=== PATIENT | female | born 1970 | race Caucasian/White ===

== ENCOUNTER → 2018-06-03 11:07 | Emergency (ER) | payer OTHER ==
[~2018-06-03 11:07] MED LIST: Lisinopril TAB* 10 MG PO ONE; Metoprolol Tartrate IV* 1 MG/ML 5 ML VIAL IV ONE; hydrALAZINE IV* 20 MG/ML VIAL IV SLOW PU ONE
--- NOTE | 2018-06-03 11:44 | ED ---
Neurological HPI - HPI Summary HPI Summary: Patient is a 47 y/o F w/ c/o right sided tingling. She states that she was working out three days ago when her RLE began to tingle. She reports that her right side "has not felt the same since." Right arm and leg are reported to feel heavier as well. In the room, patient also notes that the right sided tingling is at her entire right side currently, from face to toes. GARCIA, speech issues, dropping objects, chest pain is denied. No FMHx of stroke. PMHx of HLD, no Hx of high BP. In room, BP is 164/67. Patient denies taking any medications. Smoking, alc use is denied. No recent stress is noted. On triage, pain is denied. Nothing is reported to alleviate/aggravate Sx. Home medications and allergies are reviewed. - History of Current Complaint Chief Complaint: EDGeneral Stated Complaint: CHEST TINGLING Time Seen by Provider: 06/03/18 11:19 Hx Obtained From: Patient Onset/Duration: Started days ago - onset three days ago, Still Present Timing: Constant Current Severity: None Neurological Deficit Location: Generalized - right sided Pain Intensity: 0 Pain Scale Used: 0-10 Numeric - 0/10 Character: Numbness/Tingling Aggravating: Nothing Alleviating: Nothing Associated Signs and Symptoms: Negative: Headache, Impaired Speech, Chest Pain - Allergy/Home Medications Allergies/Adverse Reactions: Allergies Allergy/AdvReac Type Severity Reaction Status Date / Time bee venom protein (honey bee) Allergy Intermediate Swelling Verified 06/03/18 11 :40 PMH/Surg Hx/FS Hx/Imm Hx Endocrine/Hematology History: Reports: Other Endocrine/Hematological Disorders - HLD Sensory History: Denies: Hx Legally Blind, Hx Deafness Opthamlomology History: Denies: Hx Legally Blind EENT History: Denies: Hx Deafness - Cancer History Hx Chemotherapy: No Hx Radiation Therapy: No Infectious Disease History: No Infectious Disease History: Denies: Traveled Outside the [place] in Last 30 Days - Family History Known Family History: Negative: Blood Disorder - Social History Alcohol Use: None Substance Use Type: Reports: None Smoking Status (MU): Never Smoked Tobacco Review of Systems Negative: Fever, Chills Negative: Erythema Negative: Sore Throat Negative: Chest Pain Negative: Shortness Of Breath, Cough Negative: Abdominal Pain, Vomiting, Nausea Negative: dysuria, hematuria Negative: Myalgia, Edema Negative: Rash Neurological: Other - Right sided tingling, heaviness at right extremities, patient denies dropping objects Negative: Headache, Slurred Speech All Other Systems Reviewed And Are Negative: Yes Physical Exam - Summary Physical Exam Summary: Constitutional: Well-developed, Well-nourished, Alert. (-) Distressed Skin: Warm, Dry HENT: Normocephalic; Atraumatic Eyes: Conjunctiva normal Neck: Musculoskeletal ROM normal neck. (-) JVD, (-) Stridor, (-) Tracheal deviation Cardio: Rhythm regular, rate normal, Heart sounds normal; Intact distal pulses; The pedal pulses are 2+ and symmetric. Radial pulses are 2+ and symmetric. (-) Murmur Pulmonary/Chest wall: Effort normal. (-) Respiratory distress, (-) Wheezes, (-) Rales Abd: Soft. (-) Tenderness, (-) Distension, (-) Guarding, (-) Rebound Musculoskeletal: (-) Edema Lymph: (-) Cervical adenopathy Neuro: Alert, Oriented x3, Strength normal, Cranial nerves II-XII are grossly intact. (-) Dysmetria, (-) Nystagmus, (-) Ataxia by finger to nose testing, (-) Sensory deficit. NIH 0, GCS 15 Psych: Mood and affect Normal Triage Information Reviewed: Yes Vital Signs On Initial Exam: Initial Vitals Temp Pulse Resp BP Pulse Ox 97.5 F 107 18 106/70 99 06/03/18 11:11 06/03/18 11:11 06/03/18 11:11 06/03/18 11:11 06/03/18 11:11 Vital Signs Reviewed: Yes - Leatha Coma Scale Best Eye Response: 4 - Spontaneous Best Motor Response: 6 - Obeys Commands Best Verbal Response: 5 - Oriented Coma Scale Total: 15 Diagnostics - Vital Signs Vital Signs Temp Pulse Resp BP Pulse Ox 06/03/18 11:11 97.5 F 107 18 106/70 99 - Laboratory Result Diagrams: 06/03/18 12:09 06/03/18 12:09 Lab Statement: Any lab studies that have been ordered have been reviewed, and results considered in the medical decision making process. - CT brain CT CT Interpretation: No Acute Changes CT Interpretation Completed By: Radiologist - Negative unenhanced head CT. This report was reviewed by ed physician. - Ultrasound No standard instances Ultrasound Interpretation Completed By: Radiologist Summary of Ultrasound Findings: No evidence of deep venous thrombosis is identified. This report was reviewed by ED physician. - EKG 1150 Cardiac Rate: NL - rate of 70 BPM EKG Interpretation: rate of 70 BPM, sinus arrhythmia, no STEMI - Additional Comments Diagnostic Additional Comments: MRI showed normal brain, this report was reviewed by ed physician. NIH Scale - NIH Scale Level of Consciousness: Alert/Keenly Responsive Ask Patient the Month and His/Her Age: Both Correct Ask Pt to Open/Close Eyes and Frame And Scrap Crusher/Release Non-Paretic Hand: Both Correctly Best Gaze (Only Horizontal Eye Movement): Normal Visual Field Testing: No Visual Loss Facial Paresis-Pt to Smile & Close Eyes or Grimace Symmetry: Normal/Symmetrical Motor Function - Right Arm: No Drift-Holds 10 Seconds Motor Function - Left Arm: No Drift-Holds 10 Seconds Motor Function - Right Leg: No Drift-Holds 10 Seconds Motor Function - Left Leg: No Drift-Holds 10 Seconds Limb Ataxia-Must be out of Proportion to Weakness Present: Absent Sensory (Use Pinprick to Test Arms/Legs/Trunk/Face): Normal Best Language (Describe Picture, Name Items): No Aphasia Dysarthria (Read Several Words): Normal Extinction and Inattention: No Abnormality Total Score: 0 Re-Evaluation - Re-Evaluation First Eval Re-Evaluation Time: 13:40 Comment: Updated patient on labs, tests, and consult, she is agreeable with MRI. Second Eval Re-Evaluation Time: 17:00 Comment: Discussed MRI and plan of treatment. Patient will be discharged to home and follow up with PCP. She is agreeable with this plan. Course/Dx - Course Course Of Treatment: Patient is a 47 y/o F w/ c/o right sided tingling. She states that she was working out three days ago when her RLE began to tingle. She reports that her right side "has not felt the same since." Right arm and leg are reported to feel heavier as well. In the room, patient also notes that the right sided tingling is at her entire right side currently, from face to toes. GARCIA, speech issues, dropping objects, chest pain is denied. No FMHx of stroke. PMHx of HLD, no Hx of high BP. In room, BP is 164/67. Neuro exam was normal, GCS 15, NIH 0. During ED course, patient received Prinivil tab 10 mg PO ONCE, apresoline 5 mg IV SLOW PUSH ONCE. UA was negative. Labs showed free T4 0.88, TSH 2.11, HDL cholesterol 72.8, LDL cholesterol 160, Cholesterol 256, triglycerides 114, both trops negative, glucose 96, WBC 6. Negative unenhanced head CT. US IMPRESSION: no evidence of deep venous thrombosis is identified. EKG showed sinus arrhythmia w/ rate of 70 BPM, no STEMI. Patient's case was discussed with Dr. Velasco at 1314, he recommends MRI. MRI showed normal brain. 1630 - After MRI and evaluation of patient, Dr. Velasco states patient can be discharged to home. Discussed MRI and plan of treatment with patient. Patient will be discharged to home and follow up with PCP. She is agreeable with this plan. Dx of parathesia, uncontrolled HTN. - Diagnoses Provider Diagnoses: Uncontrolled hypertension, Paresthesia - Physician Notifications Discussed Care Of Patient With: Cristobal Velasco Time Discussed With Above Provider: 13:14 Instructed by Provider To: Other - Patient's case was discussed with Dr. Velasco at 1314, he recommends MRI. 1630 - After MRI and evaluation of patient, Dr. Velasco states patient can be discharged to home. Discharge - Sign-Out/Discharge Documenting (check all that apply): Patient Departure - discharge - Discharge Plan Condition: Stable Disposition: HOME Prescriptions: Lisinopril TAB* [Prinivil TAB 10 MG*] 10 mg PO DAILY #14 tab Patient Education Materials: Paresthesia (ED), Hypertension (ED) Referrals: Rashawn Choudhury MD [Primary Care Provider] - 3 Days Additional Instructions: FOLLOW UP WITH PRIMARY CARE PHYSICIAN IN 2-3 DAYS. RETURN TO THE EMERGENCY DEPARTMENT FOR CHANGING OR WORSENING SYMPTOMS - Attestation Statements Document Initiated by Scribe: Yes Documenting Scribe: Walter Rdz Provider For Whom Scribe is Documenting (Include Credential): Jose Gonzalez MD Scribe Attestation: Walter Ford , scribed for Jose Gonzalez MD on 06/03/18 at 1932.
--- NOTE | 2018-06-03 12:12 | RAD ---
Indication: Whole-body RIGHT side numbness and tingling. Comparison: No relevant prior exams available on the [facility] for comparison. Technique: Noncontrast CT vertex of skull through foramen magnum. Report: The sulci, ventricles, and basal cisterns are normal for age. East matter white matter differentiation is preserved without evidence for edema. No intra or extra axial hemorrhage, mass, or fluid collection detected. Unremarkable visualized orbital contents. Unremarkable calvarium and skull base. Unremarkable scalp. The visualized paranasal sinuses and mastoid air spaces are clear. IMPRESSION: #. Negative unenhanced head CT.
[2018-06-03 12:22] LABS: ABS Basophils 0.1 10^3/ul (0-0.2); ABS Eosinophils 0.1 10^3/ul (0-0.6); ABS Lymphocytes 2.4 10^3/ul (1.0-4.8); ABS Monocytes 0.5 10^3/ul (0-0.8); ABS Neutrophils 2.9 10^3/ul (1.5-7.7); ABS Nucleated RBC 0 10^3/ul; Eosinophil % 1.2 % (0-6); Hematocrit 38 % (35-47); Hemoglobin 12.9 g/dl (12.0-16.0); Lymphocyte % 40.4 % (25-47); Mean Corpuscular HGB Conc 34 g/dl (31-36); Mean Corpuscular Hemoglobin 30 pg (27-31); Mean Corpuscular Volume 90 fL (80-97); Mean Platelet Volume 9.8 um3 (7.4-10.4); Nucleated Red Blood Cells % 0.1; Platelet Count 180 10^3/ul (150-450); Red Blood Count 4.26 10^6/ul (4.00-5.40); Red Cell Distribution Width 13 % (10.5-15)
[2018-06-03 12:29] LABS: INR 0.97 (0.77-1.02)
--- NOTE | 2018-06-03 12:34 | RAD ---
HISTORY: Neurological Changes/Code Moore COMPARISONS: None VIEWS: 1: frontal AP view of the chest at 12:15 PM FINDINGS: LINES AND TUBES: None. CARDIOMEDIASTINAL SILHOUETTE: The cardiomediastinal silhouette is normal for portable technique. PLEURA: The costophrenic angles are sharp. No pleural abnormalities are noted. LUNG PARENCHYMA: The lungs are clear. ABDOMEN: The upper abdomen is clear. There is no subphrenic gas. BONES AND SOFT TISSUES: No bone or soft tissue abnormalities are noted. IMPRESSION: NO ACTIVE CARDIOPULMONARY DISEASE.
[2018-06-03 12:35] LABS: EGFR Non-African American 81.9 (>60)
[2018-06-03 12:56] LABS: Urine Appearance Cloudy; Urine Blood Negative (Negative); Urine Color Yellow; Urine Ketones Negative (Negative); Urine Protein Negative (Negative); Urine Specific Gravity 1.014 (1.010-1.030); Urine Urobilinogen Negative (Negative)
--- NOTE | 2018-06-03 14:09 | RAD ---
HISTORY: R ARM NUMBNESS COMPARISONS: Head CT dated June 03, 2018 TECHNIQUE: The following sequences were obtained of the head: Sagittal T1-weighted images, axial T2-weighted images, axial FLAIR images, axial susceptibility weighted images, axial T1-weighted images. Additionally, axial diffusion-weighted images were obtained with calculated apparent diffusion coefficients. FINDINGS: HEMORRHAGE/INFARCT: There is no hemorrhage or acute infarct. MASSES/SHIFT: There is no mass or shift. EXTRA-AXIAL SPACES/MENINGES: There are no extra-axial fluid collections. SULCI AND VENTRICLES: The sulci and ventricles are normal in size and position for the patient's stated age. CEREBRUM: There are no focal parenchymal abnormalities. BRAINSTEM: There are no focal parenchymal abnormalities. CEREBELLUM: There are no focal parenchymal abnormalities. The cerebellar tonsils are normal in size and position. SELLA: The sella is normal. PINEAL: The pineal region is clear. CP ANGLE/TEMPORAL BONES: The labyrinthine structures are grossly normal. VESSELS: Normal flow-voids are noted within the visualized vertebral vasculature. DIFFUSION ABNORMALITIES: There are no diffusion abnormalities. PARANASAL SINUSES/MASTOIDS: The paranasal sinuses are clear. ORBITS: The orbits are unremarkable. BONES AND SOFT TISSUE: No bone or soft tissue abnormalities are noted. OTHER: None IMPRESSION: NORMAL BRAIN
--- NOTE | 2018-06-03 16:04 | RAD ---
Indication: Right foot tingling.. Duplex Doppler sonography of the deep venous system of the right lower extremity deep venous system was performed. Bilaterally the common femoral veins appear patent and compressible. Right proximal greater saphenous vein, proximal deep femoral vein, femoral vein, popliteal vein, posterior tibial veins and peroneal veins appear patent and compressible. IMPRESSION: NO EVIDENCE OF DEEP VENOUS THROMBOSIS IS IDENTIFIED.
[2018-06-03 17:21] VITALS: BP 132/64
--- NOTE | 2018-06-03 22:32 | CONS ---
NEUROLOGY CONSULTATION: DATE OF CONSULT: 06/03/18 LOCATION: She is in the emergency room. REFERRING PROVIDER: Dr. Gonzalez. CHIEF COMPLAINT: Numbness. HISTORY OF PRESENT ILLNESS: Verona Magaña is a 47-year-old right-handed woman, who was in her usual state of health this past weekend running on a treadmill. She started to get some numbness and tingling of her foot and leg and so stopped running. It persisted to a lesser extent for most of that day. It seemed to resolve within a couple of days. She was driving to work this morning and started to get a sense of heaviness or mild numbness in her right hand. She became concerned and presented to the emergency room. In the emergency room, she was hypertensive with blood pressures running about 170/60. She was given some hydralazine and lisinopril and it resolved. The numbness in the hand and leg has resolved. She has never had any numbness on the face. There were no problems with back pain or neck pain. There were no problems with speech or language. She does not have a history of hypertension and does not take any medications at home. There is no history of diabetes. There is no history of migraines. PAST MEDICAL HISTORY: Unremarkable. She has been in excellent health. MEDICATIONS: Received here include: 1. Hydralazine. 2. Lisinopril. She is not on any medications at home. ALLERGIES: She does not have any drug allergies. REVIEW OF SYSTEMS: Negative for diabetes, heart disease, hypertension, psychological problems, gastrointestinal changes. No recent fevers or chills or sweats. No history of head trauma or seizures. PHYSICAL EXAM: She is well nourished and well hydrated. Temperature 97.5, blood pressure was 170/65, but came down to currently 135/87. Heart rate is in the 70s and in sinus on the monitor. Respiratory rate is 20, oxygen saturation is 100% on room air. Heart is in a regular rate and rhythm without murmurs. Neck is supple. There are no cervical bruits. Lungs are clear. Neurological Exam: Pupils react equally from 5 down to 2 mm. Funduscopic exam is normal bilaterally. Eye movements are normal. Visual queen are full to confrontation. Facial musculature is intact and symmetric. Palate and tongue are normal and there is no dysarthria. Facial sensation to temperature, pin, and light touch is symmetric. Hearing is intact and neck strength is normal. Sensory exam in the limbs to pin, light touch, vibration, and temperature is all symmetric. Motor exam reveals normal tone, strength, and bulk proximally and distally in the upper and lower extremities. There is no drift of any limb. Finger taps are normal in the hands. There is no rest, sustention, or action tremor. Reflexes are normoactive and symmetric in the upper and lower extremities. Plantar responses are flexor bilaterally. She is alert and oriented and an excellent detailed historian with intact memory and fluent language. She has adequate attention, concentration, and fund of knowledge. DIAGNOSTIC STUDIES/LAB DATA: Includes a normal INR, PTT, chemistry profile, urinalysis, and CBC. MRI of the brain is reviewed and is interpreted as normal. I reviewed the study and I agree. IMPRESSION AND PLAN: Impression is that of some benign paresthesias probably from nerve compression. She has a normal exam. She was hypertensive when she came in, but she was probably quite anxious and that has come down nicely. I do not think she needs any specific medical therapy. I told her if she gets persistent numbness in her limbs to call my office and I will reevaluate her. She should follow up with her primary care doctor regarding whether or not she needs antihypertensive medications. [id number]/[facility] #: [id number] [facility]
== END | disposition home or self-care (01) ==
LOC: ED 11:07
DX: I10 Essential (primary) hypertension (principal); R20.2 Paresthesia of skin; R51 Headache; Z91.030 Bee allergy status
CPT/HCPCS: 36415; 70450; 70551; 71045; 80053; 80061; 81003; 83605; 84439; 84443; 84484; 85025; 85610; 85730; 93005; 96374; 99284; A9270-GY; J0360

== ENCOUNTER 2018-11-13 10:00 | Emergency (ER) | payer BC, OTHER ==
[2018-11-13] MEDS ORDERED: NS 0.9% 1000 ML** 1,000 ML IV ONE (10:30)
[2018-11-13 10:44] LABS: ABS Basophils 0 10^3/ul (0-0.2); ABS Eosinophils 0.1 10^3/ul (0-0.6); ABS Lymphocytes 1.4 10^3/ul (1.0-4.8); ABS Monocytes 0.5 10^3/ul (0-0.8); ABS Neutrophils 2.7 10^3/ul (1.5-7.7); ABS Nucleated RBC 0 10^3/ul; Eosinophil % 2.4 %; Hematocrit 40 % (33-41); Hemoglobin 13.9 g/dL (12.0-16.0); Lymphocyte % 29.4 %; Mean Corpuscular HGB Conc 34 g/dL (31-36); Mean Corpuscular Hemoglobin 31 pg (27-31); Mean Corpuscular Volume 89 fL (80-97); Mean Platelet Volume 9.9 fL (7.4-10.4); Nucleated Red Blood Cells % 0; Platelet Count 165 10^3/uL (150-450); Red Blood Count 4.53 10^6 /uL (3.70-4.87); Red Cell Distribution Width 14 % (10.5-15); White Blood Count 4.8 10^3/uL (3.5-10.8)
--- OUTSIDE RECORDS SUMMARY | 2018-11-13 10:53 | XMS REPORT | Continuity of Care Document ---
:1970 External Reference #:[id number] Author Name Laura Mckeon PA-C Address [address] [place] [address] Care Team Providers Name Role Phone Macey HERNANDEZ, Rashawn Primary Care Physician Unavailable Payers Date Identification Numbers Payment Provider Subscriber Effective: 2018 Policy Number: [id number] [facility] [place] Magaña PayID: [id number] [address] [place] [address] Advance Directives Description No Information Available Problems Description No Information Family History Date Family Member(s) Observation Comments General Allergies General Heart Disease Social History Type Date Description Comments Sex Unknown Occupation employment counselor Tobacco Use Start: Unknown Never Smoked Cigarettes Tobacco Use Start: Unknown Never Smoked Cigars Tobacco Use Start: Unknown Never Smoked A Pipe Smokeless Tobacco Never Used Smokeless Tobacco ETOH Use Does not drink alcohol Tobacco Use Start: Unknown Patient has never smoked Smoking Status Reviewed: 10/21/18 Patient has never smoked Allergies, Adverse Reactions, Alerts Date Description Reaction Status Severity Comments 10/20/2018 Bee Sting Huge swelling if it occurs Active Medications Description No Active Medications Immunizations Description No Information Available Vital Signs Date Vital Result Comment 10/21/2018 8:29am Weight 122.00 lb Weight 55.339 kg Height 61 inches 5'1" Height in cm's 154.9 cm BMI (Body Mass Index) 23.0 kg/m2 Results Description No Information Available Procedures Date Code Description Status 10/21/2018 71455 Removal Wax Impaction Completed Encounters Description No Information Available Plan of Treatment No Information Available
[2018-11-13 11:00] LABS: Influenza A Molecular NEGATIVE (Negative); Influenza B Molecular NEGATIVE (Negative)
[2018-11-13 11:02] LABS: Albumin 4.4 g/dL (3.2-5.2); Albumin/Globulin Ratio 1.3 (1-3); BUN/Creatinine Ratio 15.7 (8-20); Calcium 9.8 mg/dL (8.6-10.3); EGFR African American 89.6 (>60); Globulin 3.3 g/dL (2-4); Magnesium 1.8 mg/dL (1.9-2.7); Potassium 3.5 mmol/L (3.5-5.0); Total Bilirubin 0.6 mg/dL (0.2-1.0); Total Protein 7.7 g/dL (6.4-8.9)
[2018-11-13 11:09] LABS: HCG Pregnancy 1.17 mIU/mL
--- NOTE | 2018-11-13 11:14 | ED ---
HPI Chest Pain - HPI Summary HPI Summary: Patient is a 47-year-old female presenting to the ED with chief complaint of feeling fatigued over the past 2 days, diffuse body aches, intermittent fevers and chills as well as feeling of heartburn starting in the epigastric region and radiating up into the throat and bilateral neck. She states she has had this in the past, however this is the worst it has been. She states she developed epigastric pain a few days after she developed the fatigue, nausea and body aches. She states due to the fatigue, she has been unable to eat well and after not eating or drinking well for the past 2 days she developed the burning sensation. She denies this currently. Denies any pain to the arm or to the jaw. She denies any other discomfort at this time. She still endorses fatigue, but denies any body aches or fevers at this time. Patient denies any personal or family history of cardiac issues. - History of Current Complaint Chief Complaint: EDGeneral Time Seen by Provider: 11/13/18 10:10 Hx Obtained From: Patient Onset/Duration: Started Hours Ago Timing: Constant Initial Severity: Moderate Current Severity: Moderate Pain Intensity: 0 Pain Scale Used: 0-10 Numeric Chest Pain Location: Mid Sternal - radiating to the throat Chest Pain Radiates: Yes Character: Burning Aggravating Factor(s): Other: - decreased PO intake Alleviating Factor(s): Nothing - Risk Factors Pulmonary Embolism Risk Factors: Negative TAD Risk Factors: Negative - Allergy/Home Medications Allergies/Adverse Reactions: Allergies Allergy/AdvReac Type Severity Reaction Status Date / Time bee venom protein (honey bee) Allergy Intermediate Swelling Verified 11/13/18 10 :06 Home Medications: Home Medications NK [No Home Medications Reported] 11/13/18 [History Confirmed 11/13/18] PMH/Surg Hx/FS Hx/Imm Hx Previously Healthy: Yes Endocrine/Hematology History: Reports: Other Endocrine/Hematological Disorders - HLD Sensory History: Denies: Hx Legally Blind, Hx Deafness Opthamlomology History: Denies: Hx Legally Blind - Cancer History Hx Chemotherapy: No Hx Radiation Therapy: No - Immunization History Hx Pertussis Vaccination: No Immunizations Up to Date: Yes Infectious Disease History: No Infectious Disease History: Denies: Traveled Outside the [place] in Last 30 Days - Family History Known Family History: Negative: Blood Disorder - Social History Occupation: Employed Full-time Lives: With Family Alcohol Use: None Hx Substance Use: No Substance Use Type: Reports: None Hx Tobacco Use: No Smoking Status (MU): Never Smoked Tobacco Review of Systems Constitutional: Negative Negative: Fever, Chills, Fatigue, Skin Diaphoresis Negative: Dental Pain Positive: Chest Pain - mid epigastric pain radiating to the throat. Negative: Palpitations Genitourinary: Negative Positive: no symptoms reported, see HPI Negative: Arthralgia, Myalgia Skin: Negative Neurological: Other - weakness All Other Systems Reviewed And Are Negative: Yes Physical Exam Triage Information Reviewed: Yes Vital Signs On Initial Exam: Initial Vitals Temp Pulse Resp BP Pulse Ox 98.7 F 82 16 153/85 100 11/13/18 10:02 11/13/18 10:02 11/13/18 10:02 11/13/18 10:02 11/13/18 10:02 Vital Signs Reviewed: Yes Appearance: Positive: Well-Appearing, Well-Nourished Skin: Positive: Warm, Skin Color Reflects Adequate Perfusion Head/Face: Positive: Normal Head/Face Inspection Eyes: Positive: EOMI, Conjunctiva Clear Neck: Positive: Supple, No Lymphadenopathy Respiratory/Lung Sounds: Positive: Clear to Auscultation, Breath Sounds Present Cardiovascular: Positive: RRR, Pulses are Symmetrical in both Upper and Lower Extremities. Negative: Leg Edema Left, Leg Edema Right Musculoskeletal: Positive: Normal, Strength/ROM Intact Neurological: Positive: Speech Normal Psychiatric: Positive: Normal, Affect/Mood Appropriate AVPU Assessment: Alert Diagnostics - Vital Signs Vital Signs Temp Pulse Resp BP Pulse Ox 11/13/18 10:36 63 7 133/77 97 11/13/18 10:22 17 11/13/18 10:02 98.7 F 82 16 153/85 100 - Laboratory Lab Results: Lab Results 11/13/18 11/13/18 11/13/18 Range/Units 10:32 10:32 10:32 WBC 4.8 (3.5-10.8) 10^3/uL RBC 4.53 (3.70-4.87) 10^6 /uL Hgb 13.9 (12.0-16.0) g/dL Hct 40 (33-41) % MCV 89 (80-97) fL MCH 31 (27-31) pg MCHC 34 (31-36) g/dL RDW 14 (10.5-15) % Plt Count 165 (150-450) 10^3/uL MPV 9.9 (7.4-10.4) fL Neut % (Auto) 56.4 % Lymph % (Auto) 29.4 % [place] % (Auto) 11.1 % Eos % (Auto) 2.4 % Baso % (Auto) 0.7 % Absolute Neuts (auto) 2.7 (1.5-7.7) 10^3/ul Absolute Lymphs (auto) 1.4 (1.0-4.8) 10^3/ul Absolute Monos (auto) 0.5 (0-0.8) 10^3/ul Absolute Eos (auto) 0.1 (0-0.6) 10^3/ul Absolute Basos (auto) 0 (0-0.2) 10^3/ul Absolute Nucleated RBC 0 10^3/ul Nucleated RBC % 0 Sodium 136 (135-145) mmol/L Potassium 3.5 (3.5-5.0) mmol/L Chloride 102 (101-111) mmol/L Carbon Dioxide 27 (22-32) mmol/L Anion Gap 7 (2-11) mmol/L BUN 13 (6-24) mg/dL Creatinine 0.83 (0.51-0.95) mg/dL Est GFR ( Amer) 89.6 (>60) Est GFR (Non-Af Amer) 74.0 (>60) BUN/Creatinine Ratio 15.7 (8-20) Glucose 96 (70-100) mg/dL Lactic Acid 1.0 (0.5-2.0) mmol/L Calcium 9.8 (8.6-10.3) mg/dL Magnesium 1.8 L (1.9-2.7) mg/dL Total Bilirubin 0.60 (0.2-1.0) mg/dL AST 17 (13-39) U/L ALT 15 (7-52) U/L Alkaline Phosphatase 56 (34-104) U/L Troponin I 0.00 (<0.04) ng/mL Total Protein 7.7 (6.4-8.9) g/dL Albumin 4.4 (3.2-5.2) g/dL Globulin 3.3 (2-4) g/dL Albumin/Globulin Ratio 1.3 (1-3) TSH Pending Beta HCG, Quant Pending Influenza A (Rapid) (Negative) Influenza B (Rapid) (Negative) 11/13/18 Range/Units 10:32 WBC (3.5-10.8) 10^3/uL RBC (3.70-4.87) 10^6 /uL Hgb (12.0-16.0) g/dL Hct (33-41) % MCV (80-97) fL MCH (27-31) pg MCHC (31-36) g/dL RDW (10.5-15) % Plt Count (150-450) 10^3/uL MPV (7.4-10.4) fL Neut % (Auto) % Lymph % (Auto) % [place] % (Auto) % Eos % (Auto) % Baso % (Auto) % Absolute Neuts (auto) (1.5-7.7) 10^3/ul Absolute Lymphs (auto) (1.0-4.8) 10^3/ul Absolute Monos (auto) (0-0.8) 10^3/ul Absolute Eos (auto) (0-0.6) 10^3/ul Absolute Basos (auto) (0-0.2) 10^3/ul Absolute Nucleated RBC 10^3/ul Nucleated RBC % Sodium (135-145) mmol/L Potassium (3.5-5.0) mmol/L Chloride (101-111) mmol/L Carbon Dioxide (22-32) mmol/L Anion Gap (2-11) mmol/L BUN (6-24) mg/dL Creatinine (0.51-0.95) mg/dL Est GFR ( Amer) (>60) Est GFR (Non-Af Amer) (>60) BUN/Creatinine Ratio (8-20) Glucose (70-100) mg/dL Lactic Acid (0.5-2.0) mmol/L Calcium (8.6-10.3) mg/dL Magnesium (1.9-2.7) mg/dL Total Bilirubin (0.2-1.0) mg/dL AST (13-39) U/L ALT (7-52) U/L Alkaline Phosphatase (34-104) U/L Troponin I (<0.04) ng/mL Total Protein (6.4-8.9) g/dL Albumin (3.2-5.2) g/dL Globulin (2-4) g/dL Albumin/Globulin Ratio (1-3) TSH Beta HCG, Quant Influenza A (Rapid) Negative (Negative) Influenza B (Rapid) Negative (Negative) Result Diagrams: 11/13/18 10:32 11/13/18 10:32 Lab Statement: Any lab studies that have been ordered have been reviewed, and results considered in the medical decision making process. Chest Pain Course/Dx - Course Course Of Treatment: During the course of treatment, labs are obtained including a troponin. Troponin 0.00. All other labs WNL. No white count is noted. She is afebrile and other vital signs are stable. She denies any cardiac history and no family history. She did note to having hypercholesterolemia and takes medications for this, however has never had hypertension in the past. Influenza negative. Patient appears well. She is given 1 L fluids. EKG obtained and is normal sinus rhythm with a rate of 67. Chest x-ray negative for any acute cardiopulmonary findings. Vital signs are stable and patient remained afebrile. Lungs CTA. RRR. MEAGAN score of 0. Patient will be discharged home with epigastric pain and fatigue. She is okay with this plan and discharge. She is encouraged plenty of fluids and rest at this time. Patient states she does not want to be started on any PPI at this time. She will take antiacids if needed. - Diagnoses Provider Diagnoses: GERD (gastroesophageal reflux disease) Discharge - Sign-Out/Discharge Documenting (check all that apply): Patient Departure Patient Received Moderate/Deep Sedation with Procedure: No - Discharge Plan Condition: Stable Disposition: HOME Patient Education Materials: Gastroesophageal Reflux Disease (ED) Referrals: Rashawn Choudhury MD [Primary Care Provider] - Additional Instructions: Please follow up with PCP - Billing Disposition and Condition Condition: STABLE Disposition: Home
[2018-11-13 11:38] LABS: TSH (Thyroid Stimulating Horm) 1.44 mcIU/mL (0.34-5.60)
[2018-11-13 11:39] VITALS: BP 142/58
== END 2018-11-13 11:39 | disposition home or self-care (01) ==
LOC: ED 10:00
DX: K21.9 Gastro-esophageal reflux disease without esophagitis (principal); R07.9 Chest pain, unspecified
CPT/HCPCS: 36415; 71046; 80053; 83605; 83735; 84443; 84484; 84702; 85025; 93005; 96360; 99282